=== PATIENT | male | born 1990 | race Hispanic/Latino ===

== ENCOUNTER 2019-07-12 07:47 | Emergency (ER) | payer SELFPAY ==
[2019-07-12 09:12] LABS: Absolute Lymphocytes (CBC) 1.7 K/uL (0.7-4.9); Basophils % 0.7 % (0-1.3); Hematocrit 47.6 % (39.6-49.0); Lymphocytes % 28.3 % (15.3-44.8); MPV 9.1 fL (7.6-11.3); RBC Red Blood Cell Count 5.37 M/uL (4.33-5.43)
[2019-07-12 09:26] LABS: Potassium 4.5 mmol/L (3.5-5.1)
--- NOTE | 2019-07-12 10:19 | RAD REPORT ---
EXAM DESCRIPTION: CT - Abdomen Pelvis W Contrast - 07/12/2019 10:01 am CLINICAL HISTORY: Abdominal pain COMPARISON: none. TECHNIQUE: Computed axial tomography of the abdomen pelvis was obtained. 100 cc Isovue-300 was admin istered intravenously. Oral contrast was not requested which limits evaluation of bowel. All CT scans are performed using dose optimization technique as appropriate and may include automated exposure control or mA/KV adjustment according to patient size. FINDINGS: The liver, spleen, pancreas, adrenal and kidneys appear unremarkable. There is no evidence of diverticulitis. Normal appendix. Rectal wall thickening is present. Several perirectal lymph nodes are present. Largest measures 7 mil limeters short axis IMPRESSION: Rectal wall thickening may indicate neoplasm or proctitis. Mild perirectal lymphadenopat hy
--- NOTE | 2019-07-12 10:42 | ER ---
Nurse's Notes [facility] Name: Enrique Hernandez Age: 29 yrs Sex: Male : 1990 Arrival Date: 07/12/2019 Time: 07:50 Bed 16 Private MD: Diagnosis: Rectal bleeding, unspecified Presentation: 07/11 08:32 Chief complaint: Patient states: rectal bleeding X 1.5 months, intermittent, denies abd iw pain , fever, diarrhea, states there is bleed when he wipes and sometimes there is mucous or clots. Coronavirus screen: Proceed with normal triage. Patient denies a cough. Patient denies shortness of breath or difficulty breathing. Patient denies measured and/or subjective temperature greater than 100.4F prior to today's visit. Patient denies travel on a cruise ship or to a country the [facility] currently lists as an affected area. Patient denies contact with known and/or suspected case of COVID-19. Ebola Screen: Patient negative for fever greater than or equal to 101.5 degrees Fahrenheit, and additional compatible Ebola Virus Disease symptoms Patient denies exposure to infectious person. Patient denies travel to an Ebola-affected area in the 21 days before illness onset. No symptoms or risks identified at this time. Initial Sepsis Screen: Does the patient meet any 2 criteria? No. Patient's initial sepsis screen is negative. Does the patient have a suspected source of infection? No. Patient's initial sepsis screen is negative. Risk Assessment: Do you want to hurt yourself or someone else? Patient reports no desire to harm self or others. Onset of symptoms was May 2019. 08:32 Method Of Arrival: Ambulatory iw 08:32 Acuity: MINDY 3 iw Historical: - Allergies: 08:39 No Known Allergies; iw - Home Meds: 08:39 None [Active]; iw - PMHx: 08:39 None; iw - PSHx: 08:39 None; iw - Immunization history:: Adult Immunizations not up to date, Flu vaccine is not up to date. - Family history:: not pertinent. - Social history:: Smoking status: Patient reports the use of cigarette tobacco products, denies chronic smoking, but will smoke occasionally. - Hospitalizations: : No recent hospitalization is reported. Screenin:01 Abuse screen: Denies threats or abuse. Denies injuries from another. Nutritional iw screening: No deficits noted. Tuberculosis screening: No symptoms or risk factors identified. Fall Risk IV access (20 points). Assessment: 09:00 General: Appears in no apparent distress. Behavior is calm, cooperative. General: iw Denies fever, feeling ill, chills. Pain: Denies pain. Neuro: Level of Consciousness is awake, alert, obeys commands, Oriented to person, place, time, situation, Moves all extremities. Full function. Cardiovascular: Patient's skin is warm and dry. Respiratory: Respiratory effort is even, unlabored. GI: Abd is soft and non tender X 4 quads. Reports rectal bleeding, bloody stool, Patient currently denies abdominal pain, diarrhea, nausea, vomiting. : No signs and/or symptoms were reported regarding the genitourinary system. Derm: Skin is intact, is healthy with good turgor, Skin is pink, warm \T\ dry. Skin temperature is warm. Musculoskeletal: Range of motion: intact in all extremities. 10:40 Reassessment: Patient appears in no apparent distress at this time. Patient and/or iw family updated on plan of care and expected duration. Pain level reassessed. Patient is alert, oriented x 3, equal unlabored respirations, skin warm/dry/pink. Vital Signs: 08:32 BP 139 / 98; Pulse 73; Resp 16; Temp 98.1; Pulse Ox 100% on R/A; iw 10:15 BP 117 / 92; Pulse 74; Resp 17 S; Pulse Ox 97% on R/A; ca1 ED Course: 07:50 Patient arrived in ED. as 08:26 Abhi Combs MD is Attending Physician. rn 08:39 Triage completed. iw 08:51 Kristel Beavers, RN is Primary Nurse. iw 09:00 Initial lab(s) drawn, by me, sent to lab. Inserted saline lock: 20 gauge in left iw antecubital area, using aseptic technique. Blood collected. 09:53 Arm band placed on. ca1 10:02 CT Abd/Pelvis - IV Contrast Only In Process Unspecified. EDMS 10:21 Patient has correct armband on for positive identification. ca1 10:40 Cb Wetzel MD is Referral Physician. rn 10:55 No provider procedures requiring assistance completed. IV discontinued, intact, iw bleeding controlled, No redness/swelling at site. Pressure dressing applied. Administered Medications: No medications were administered Outcome: 10:41 Discharge ordered by . rn 10:57 Discharged to home ambulatory. iw 10:57 Condition: good 10:57 Discharge instructions given to patient, Instructed on discharge instructions, follow up and referral plans. medication usage, Demonstrated understanding of instructions, follow-up care, medications, Prescriptions given X 2. 10:58 Patient left the ED. Signatures: Dispatcher [employer] EDMS Beatriz Ryan Irene, RN RN Abhi Combs MD MD rn Acob, Christen RN RN ca1
--- NOTE | 2019-07-12 10:42 | EDPHYS ---
Physician Documentation [facility] Name: Enrique Hernandez Age: 29 yrs Sex: Male : 1990 Arrival Date: 07/12/2019 Time: 07:50 Bed 16 Private MD: ED Physician Abhi Combs HPI: 07/11 09:44 This 29 yrs old Male presents to ER via Ambulatory with complaints of Rectal rn Bleeding. 09:44 The patient presents to the emergency department with bleeding from the rectum/anus, rn that is mild. Onset: The symptoms/episode began/occurred 1 month(s) ago. Modifying factors: The symptoms are alleviated by nothing, The symptoms are aggravated by bowel movement. The patient has experienced similar episodes in the past. The patient has not recently seen a physician. Reports 1 month of bright red blood per rectum, no pain, no masses felt or seen, reports has happened before and stopped on its own, no f/u with GI. Came in today because hasn't stopped. No sob or syncope/lightheadedness. No abd pain. + mother with colon cancer. NO weight loss. . Historical: - Allergies: 08:39 No Known Allergies; iw - Home Meds: 08:39 None [Active]; iw - PMHx: 08:39 None; iw - PSHx: 08:39 None; iw - Immunization history:: Adult Immunizations not up to date, Flu vaccine is not up to date. - Family history:: not pertinent. - Social history:: Smoking status: Patient reports the use of cigarette tobacco products, denies chronic smoking, but will smoke occasionally. - Hospitalizations: : No recent hospitalization is reported. ROS: 09:44 Constitutional: Negative for fever, chills, and weight loss, Eyes: Negative for injury, rn pain, redness, and discharge, Cardiovascular: Negative for chest pain, palpitations, and edema, Respiratory: Negative for shortness of breath, cough, wheezing, and pleuritic chest pain, Abdomen/GI: Negative for abdominal pain, nausea, vomiting, diarrhea, and constipation, Back: Negative for injury and pain, : Negative for injury, bleeding, discharge, and swelling, MS/Extremity: Negative for injury and deformity, Skin: Negative for injury, rash, and discoloration, Neuro: Negative for headache, weakness, numbness, tingling, and seizure. Exam: 09:44 Constitutional: This is a well developed, well nourished patient who is awake, alert, rn and in no acute distress. Head/Face: Normocephalic, atraumatic. Eyes: Pupils equal round and reactive to light, extra-ocular motions intact. Lids and lashes normal. Conjunctiva and sclera are non-icteric and not injected. Cornea within normal limits. Periorbital areas with no swelling, redness, or edema. ENT: MMM Abdomen/GI: soft, non-tender, no external hemorrhoid or prolapsed hemorrhoid Skin: Warm, dry MS/ Extremity: Pulses equal, no cyanosis. Neurovascular intact. Full, normal range of motion. Equal circumference. Neuro: Awake and alert, GCS 15, oriented to person, place, time, and situation. Cranial nerves II-XII grossly intact. Motor strength 5/5 in all extremities. Sensory grossly intact. Cerebellar exam normal. Normal gait. Vital Signs: 08:32 BP 139 / 98; Pulse 73; Resp 16; Temp 98.1; Pulse Ox 100% on R/A; iw 10:15 BP 117 / 92; Pulse 74; Resp 17 S; Pulse Ox 97% on R/A; ca1 MDM: 08:26 Patient medically screened. rn 10:38 Differential diagnosis: hemorrhoids, rectal cancer, internal hemorrhoid. Data reviewed: rn vital signs, nurses notes, lab test result(s), radiologic studies, CT scan, and as a result, I will discharge patient. Counseling: I had a detailed discussion with the patient and/or guardian regarding: the historical points, exam findings, and any diagnostic results supporting the discharge/admit diagnosis, lab results, radiology results, the need for outpatient follow up, to return to the emergency department if symptoms worsen or persist or if there are any questions or concerns that arise at home. Special discussion: I discussed with the patient/guardian in detail that at this point there is no indication for admission to the hospital. It is understood, however, that if the symptoms persist or worsen the patient needs to return immediately for re-evaluation. Based on the history and exam findings, there is no indication for further emergent testing or inpatient evaluation. I discussed with the patient/guardian the need to see the consumer electronics merchandiser for further evaluation of the symptoms. ED course: Pt with rectal wall thickening, possible malignancy vs proctitis, will cover with abx and dc with close GI f/u for scope. Explained everything to patient. . 07/11 08:50 Order name: Basic Metabolic Panel; Complete Time: 09:40 rn 07/11 08:50 Order name: CBC with Diff; Complete Time: 09:40 rn 07/11 08:50 Order name: Creatinine for Radiology; Complete Time: 09:40 rn 07/11 08:50 Order name: IV Saline Lock; Complete Time: 09:02 rn 07/11 08:50 Order name: Labs collected and sent; Complete Time: 09:02 rn 07/11 08:50 Order name: CT Abd/Pelvis - IV Contrast Only; Complete Time: 10:38 rn Administered Medications: No medications were administered Disposition: 07/12/19 10:41 Discharged to Home. Impression: Rectal bleeding, unspecified. - Condition is Stable. - Discharge Instructions: Rectal Bleeding. - Prescriptions for Cipro 500 mg Oral Tablet - take 1 tablet by ORAL route every 12 hours for 10 days; 20 tablet. Flagyl 500 mg Oral Tablet - take 1 tablet by ORAL route every 8 hours for 10 days; 30 tablet. - Work release form, Medication Reconciliation Form, Thank You Letter, Antibiotic Education, Prescription Opioid Use form. - Follow up: Cb Wetzel MD; When: 1 week; Reason: Recheck today's complaints, Re-evaluation by your physician. - Problem is an ongoing problem. - Symptoms have improved. Signatures: Dispatcher [employer] EDKristel Strong RN RN iw Nieto, Roman, MD MD rn Acob, ALICIA Velásquez RN ca1 Corrections: (The following items were deleted from the chart) 09:49 09:44 Constitutional: This is a well developed, well nourished patient who is awake, rn alert, and in no acute distress. Head/Face: Normocephalic, atraumatic. Eyes: Pupils equal round and reactive to light, extra-ocular motions intact. Lids and lashes normal. Conjunctiva and sclera are non-icteric and not injected. Cornea within normal limits. Periorbital areas with no swelling, redness, or edema. ENT: MMM Abdomen/GI: soft, non-tender Skin: Warm, dry MS/ Extremity: Pulses equal, no cyanosis. Neurovascular intact. Full, normal range of motion. Equal circumference. Neuro: Awake and alert, GCS 15, oriented to person, place, time, and situation. Cranial nerves II-XII grossly intact. Motor strength 5/5 in all extremities. Sensory grossly intact. Cerebellar exam normal. Normal gait. rn 10:58 10:41 07/12/2019 10:41 Discharged to Home. Impression: Rectal bleeding, unspecified. iw Condition is Stable. Forms are Medication Reconciliation Form, Thank You Letter, Antibiotic Education, Prescription Opioid Use. Follow up: Cb Wetzel; When: 1 week; Reason: Recheck today's complaints, Re-evaluation by your physician. Problem is an ongoing problem. Symptoms have improved. rn
[2019-07-12 11:13] VITALS: TEMP 98.1
[2019-07-12 11:15] VITALS: BP 117/92; O2SAT 97
== END 2019-07-12 10:58 | disposition home or self-care (01) ==
LOC: ER 07:47
DX: K62.5 Hemorrhage of anus and rectum (principal); F17.210 Nicotine dependence, cigarettes, uncomplicated
CPT/HCPCS: 36415; 74177; 80048; 85025; 99284; Q9967